=== PATIENT | female | born 1970 | race Caucasian/White ===

== ENCOUNTER 2019-04-14 23:04 | Emergency (ER) | payer OTHER ==
[~2019-04-14] VITALS: Ht 162.6 cm; Wt 99.8 kg
[2019-04-14 23:04] VITALS: BP 162/99
--- NOTE | 2019-04-14 23:04 | NUR ---
PT SHERIF ALS. TAKEN TO BED 4
--- NOTE | 2019-04-14 23:23 | NUR ---
49 Y/O FEMALE BIBA FROM HOME, PRESENTS TO ED C/O DIZZINESS AND LIGHTHEADEDNESS. PT C/O RINGING IN EARS. PT DENIES ANY SYNCOPAL EPISODE. ABLE TO AMBULATE WITH SLOW STEADY GAIT. PT DENIES ANY SOB/DIFFICULTY BREATHING. NO CHEST PAIN NOTED. PT DENIES N/V/D. PT PLACED ON MONITOR. PT VSS. ERMD AWARE. WILL CONTINUE TO MONITOR.
[2019-04-15] MEDS ORDERED: ONDANSETRON 4 MG/2 ML VIAL IVP ONE (00:50)
--- NOTE | 2019-04-15 00:55 | NUR ---
EKG PERFORMED AT BEDSIDE
--- NOTE | 2019-04-15 01:12 | NUR ---
BLOOD DRAWN AND GIVEN TO PHLEB
[2019-04-15 01:16] LABS: BASOPHILS # (AUTO) 0.1 K/uL (0.00-0.22); BASOPHILS % (AUTO) 0.7 % (0.0-2.0); EOSINOPHILS # (AUTO) 0.1 K/uL (0-0.4); EOSINOPHILS % (AUTO) 0.9 % (0.0-4.0); HEMOGLOBIN 13.6 g/dL (12.0-16.0); LYMPHOCYTES # (AUTO) 1.4 K/uL (2.5-16.5); LYMPHOCYTES % (AUTO) 13.2 % (20.5-51.1); MEAN CORPUSCULAR HEMOGLOBIN 27 pg (27-31); MEAN CORPUSCULAR HGB CONC 32 g/dL (33-37); MEAN CORPUSCULAR VOLUME 84.5 fL (80-94); MONOCYTES # (AUTO) 0.5 K/uL (0.8-1.0); MONOCYTES % (AUTO) 4.4 % (1.7-9.3); NEUTROPHILS # (AUTO) 8.3 K/uL (1.8-7.7); NEUTROPHILS % (AUTO) 80.8 % (42.2-75.2); PLATELET COUNT (AUTO) 390 K/uL (140-450); RED BLOOD CELL COUNT(AUTO) 4.97 MIL/uL (4.20-5.40); RED CELL DISTRIBUTION WIDTH 14.7 % (11.6-13.7); WHITE BLOOD COUNT (AUTO) 10.3 K/uL (4.8-10.8)
[2019-04-15 01:27] LABS: ANION GAP 14.5 (8-16); CARBON DIOXIDE 26.1 mmol/L (21-32); CREATININE 0.9 mg/dL (0.6-1.3); POTASSIUM 3.6 mmol/L (3.5-5.1)
--- NOTE | 2019-04-15 01:50 | NUR ---
Pt sitting at the bedside. RR even/unlabored. VSS. alert and calm.
[2019-04-15 02:08] VITALS: BP 135/75
--- NOTE | 2019-04-15 02:08 | NUR ---
PT DISCHARGED WITH PAPERWORK. NO MEDICATIONS PROVIDED. EDUCATED PT REGARDING D/C DIAGNOSIS AND INSTRUCTIONS. PT VERBALIZED UNDERSTANDING. TOLD PT TO FOLLOW UP WITH PCP AND WHEN TO RETURN TO ED. PT AT STABLE CONDITION. DENIES ANY DIZZINESS. ALL QUESTIONS ANSWERED.
== END 2019-04-15 02:08 | disposition home or self-care (01) ==
LOC: MED 23:04
DX: I16.0 Hypertensive urgency (principal); R42 Dizziness and giddiness; I10 Essential (primary) hypertension
CPT/HCPCS: 36415; 80048; 84484; 84703; 85025; 93005; 96374; 99284; J2405

== ENCOUNTER 2020-02-11 02:25 | Emergency (ER) | payer OTHER ==
[~2020-02-11] VITALS: Ht 160 cm; Wt 108.4 kg
[2020-02-11 02:34] VITALS: BP 151/98
--- NOTE | 2020-02-11 02:38 | NUR ---
PT AMBULATED TO BED 11 WITH STEADY GAIT.
--- NOTE | 2020-02-11 02:44 | NUR ---
ERMD AT BEDSIDE Addendum: 02/11/20 at 0246 by [email or web address] ER DOCTOR ASSESSED PT, NO NURSING INTERVENTIONS AT THIS TIME
[2020-02-11] MEDS ORDERED: MORPHINE SULFATE 4 MG/ML SYR IM ONE (02:50)
[2020-02-11 02:58] VITALS: BP 151/98
== END 2020-02-11 02:58 | disposition home or self-care (01) ==
LOC: MED 02:25
DX: M79.10 Myalgia, unspecified site (principal); I10 Essential (primary) hypertension
CPT/HCPCS: 96372; 99283; J2270